=== PATIENT | male | born 1975 | race American Indian/Alaskan Native ===

== ENCOUNTER 2019-07-01 18:57 | Emergency (ER) | payer OTHER ==
[2019-07-01] MEDS ORDERED: HYDROcodone/ACETAMINOPHEN 5-325 MG TAB PO ONE (22:36)
[2019-07-01] MEDS ORDERED: IBUPROFEN 800 MG TAB PO ONE (22:36)
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
[2019-07-02 02:53] VITALS: BP 126/82
== END 2019-07-02 00:30 | disposition home or self-care (01) ==
LOC: ED 18:57
DX: S39.012A Strain of muscle, fascia and tendon of lower back, initial encounter (principal); R51 Headache; Z79.899 Other long term (current) drug therapy; V49.49XA Driver injured in collision with other motor vehicles in traffic accident, initial encounter; Y93.89 Activity, other specified; Y92.410 Unspecified street and highway as the place of occurrence of the external cause; Y99.8 Other external cause status
CPT/HCPCS: 72100